=== PATIENT | female | born 1990 | race African-American/Black ===

== ENCOUNTER 2017-01-03 16:27 | Emergency (ER) | payer OTHER ==
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
[2017-01-03] MEDS ORDERED: Hydrocodone/APAP 5mg/325mg Tab PO ONE (16:59)
[2017-01-03] MEDS ORDERED: Hydrocodone/APAP 5mg/325mg Tab ONE (17:03)
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
== END 2017-01-03 20:05 | disposition home or self-care (01) ==
LOC: EEVIPCON 16:27 → ER 16:27
DX: S16.1XXA Strain of muscle, fascia and tendon at neck level, initial encounter (principal); S29.012A Strain of muscle and tendon of back wall of thorax, initial encounter; S39.012A Strain of muscle, fascia and tendon of lower back, initial encounter; M51.26 Other intervertebral disc displacement, lumbar region; V49.9XXA Car occupant (driver) (passenger) injured in unspecified traffic accident, initial encounter; Y93.89 Activity, other specified; Y92.488 Other paved roadways as the place of occurrence of the external cause; Y99.8 Other external cause status
CPT/HCPCS: 72125-TC; 72128-TC; 72131-TC; 81025-TC; Z7502

== ENCOUNTER 2018-03-29 17:54 | Emergency (ER) | payer OTHER | END 2018-03-29 19:30 | disposition left against medical advice (07) | LOC: ER 17:54 | DX: R21 Rash and other nonspecific skin eruption (principal) ==